=== PATIENT | female | born 1955 | race Caucasian/White ===

== ENCOUNTER 2017-04-30 16:44 | Emergency (ER) | payer OTHER ==
[~2017-04-30] VITALS: Ht 162.6 cm; Wt 72.7 kg
[~2017-04-30 16:44] MED LIST: ALPRAZOLAM0.5 MG PO; CLEOCIN300 MG PO; DEXEDRINE, DEXT10 MG PO; METAMUCIL PACKE1 PKT PO; METHOCARBAMOL500 MG PO; MOBIC7.5 MG PO; MUCINEX1200 MG PO; OXYCODONE HCL5 MG PO; ULTRAM50 MG PO
[2017-04-30 19:09] VITALS: BP 132/97
== END 2017-04-30 19:09 | disposition home or self-care (01) ==
LOC: EME 16:44
PROC: 2W3RX2Z Immobilization of Left Lower Leg using Cast (ICD-10-PCS; principal; 2017-04-30)
DX: Z47.89 Encounter for other orthopedic aftercare (principal)
CPT/HCPCS: 99281; 99283

== ENCOUNTER 2017-06-05 20:16 | Emergency (ER) | payer OTHER ==
[~2017-06-05] VITALS: Ht 162.6 cm; Wt 73.0 kg
[2017-06-05 23:31] VITALS: BP 146/95
== END 2017-06-05 23:35 | disposition home or self-care (01) ==
LOC: EME 20:16
DX: M25.572 Pain in left ankle and joints of left foot (principal); Z98.890 Other specified postprocedural states; F90.9 Attention-deficit hyperactivity disorder, unspecified type; Z85.3 Personal history of malignant neoplasm of breast; Z90.10 Acquired absence of unspecified breast and nipple; Z91.040 Latex allergy status; Z88.8 Allergy status to other drugs, medicaments and biological substances
CPT/HCPCS: 73610; 73630; 99281; 99283

== ENCOUNTER 2017-07-04 20:34 | Emergency (ER) | payer OTHER ==
[~2017-07-04] VITALS: Ht 162.6 cm; Wt 77.2 kg
[2017-07-04 22:38] VITALS: BP 157/113
== END 2017-07-04 22:38 | disposition home or self-care (01) ==
LOC: EME 20:34
DX: S93.602A Unspecified sprain of left foot, initial encounter (principal); W18.30XA Fall on same level, unspecified, initial encounter; Z98.890 Other specified postprocedural states; I10 Essential (primary) hypertension; Z85.3 Personal history of malignant neoplasm of breast; Z91.040 Latex allergy status; Z88.6 Allergy status to analgesic agent; Z88.8 Allergy status to other drugs, medicaments and biological substances
CPT/HCPCS: 73630; 99281; 99283

== ENCOUNTER 2017-10-28 11:55 | Emergency (ER) | payer OTHER ==
[~2017-10-28] VITALS: Ht 162.6 cm; Wt 78.8 kg
[2017-10-28 12:42] LABS: HEMATOCRIT 42.6 % (36.0-46.0); HEMOGLOBIN 14.6 G/DL (11.9-15.5); MCH 28.2 PG (29.0-34.0); MCHC 34.3 G/DL (30.0-36.0); MCV 82.2 FL (83-99); PLATELET COUNT 265 K/uL (156-360); RBC DIS.WIDTH-CV 13.8 % (11.8-14.6); RBC DIS.WIDTH-SD 40.9 % (39-53); RED BLOOD COUNT 5.18 M/uL (3.80-5.20); WHITE BLOOD COUNT 6.7 K/uL (4.1-10.2)
[2017-10-28 12:55] LABS: ALBUMIN 4.5 g/dL (3.2-4.8); CHLORIDE 108 mEq/L (99-109); POTASSIUM 4.5 mEq/L (3.7-5.4); SODIUM 140 mEq/L (136-147)
[2017-10-28 12:57] LABS: GLUCOSE 98 mg/dL (70-99); TOTAL PROTEIN 7.9 g/dL (6.4-8.3)
[2017-10-28 12:59] LABS: TOTAL BILIRUBIN 0.4 mg/dL (0.0-1.0)
[2017-10-28 13:01] LABS: ALKALINE PHOSPHATASE 93 IU/L (3-129); CREATININE 0.9 mg/dL (0.6-1.3); GFR ESTIMATE (CALCULATED) > 59 mL/min/
[2017-10-28 13:02] LABS: AST (GOT) 21 IU/L (2-34); UREA NITROGEN (BUN) 18 mg/dL (9-23)
[2017-10-28 13:04] LABS: ALT (GPT) 20 IU/L (3-49)
[2017-10-28] MEDS ORDERED: REGLAN10 MG PO (15:22)
[2017-10-28 15:37] VITALS: BP 143/91
== END 2017-10-28 15:49 | disposition home or self-care (01) ==
LOC: EME 11:55
DX: K59.00 Constipation, unspecified (principal); K92.1 Melena; J32.9 Chronic sinusitis, unspecified; F90.9 Attention-deficit hyperactivity disorder, unspecified type; Z85.3 Personal history of malignant neoplasm of breast; Z90.10 Acquired absence of unspecified breast and nipple; Z91.040 Latex allergy status; Z88.6 Allergy status to analgesic agent; Z88.8 Allergy status to other drugs, medicaments and biological substances; Z91.018 Allergy to other foods
CPT/HCPCS: 80053; 81003; 85027; 99281; 99284